=== PATIENT | female | born 1990 | race Two or more races ===

== ENCOUNTER 2018-02-16 02:46 | Inpatient (IN) | payer OTHER ==
[~2018-02-16] VITALS: Ht 157.5 cm; Wt 53.5 kg
== END 2018-02-18 11:02 | DRG 775 ==
LOC: EDBD 02:46 → OBS/DEL 02:46 → LDR 10:06 → OBS/DEL 10:06 → OB/GYN 17:13
PROC: 10E0XZZ Delivery of Products of Conception, External Approach (ICD-10-PCS; principal; 2018-02-16)
PROC: 0W8NXZZ Division of Female Perineum, External Approach (ICD-10-PCS; 2018-02-16)
PROC: 10907ZC Drainage of Amniotic Fluid, Therapeutic from Products of Conception, Via Natural or Artificial Opening (ICD-10-PCS; 2018-02-16)
PROC: 3E033VJ Introduction of Other Hormone into Peripheral Vein, Percutaneous Approach (ICD-10-PCS; 2018-02-16)
PROC: 4A033R1 Measurement of Arterial Saturation, Peripheral, Percutaneous Approach (ICD-10-PCS; 2018-02-16)
PROC: 4A1HXCZ Monitoring of Products of Conception, Cardiac Rate, External Approach (ICD-10-PCS; 2018-02-16)
DX: O99.824 Streptococcus B carrier state complicating childbirth (principal); Z3A.38 38 weeks gestation of pregnancy; Z37.0 Single live birth

== ENCOUNTER 2023-08-08 10:03 | Emergency (ER) | payer OTHER ==
[~2023-08-08] VITALS: Ht 157.5 cm; Wt 44.0 kg
[2023-08-08 12:43] LABS: HEMATOCRIT 42.6 % (36.0-45.00); HEMOGLOBIN 14.4 g/dL (12.0-15.00); MEAN CELL VOLUME 92.1 fL (80.00-100.00); MEAN CORPUSCULAR HEMOGLOBIN 31.2 pg (27.00-32.0); MEAN CORPUSCULAR HGB CONC 33.9 g/dl (32.0-36.0); PLATELET COUNT 282 K/uL (150-450); RED BLOOD COUNT 4.63 M/uL (4.00-6.00)
[2023-08-08 13:09] LABS: CALCIUM 9.6 mg/dL (8.5-10.1); CREATININE SERUM 0.64 mg/dL (0.55-1.02); GFR 107.54; POTASSIUM 3.88 mEq/L (3.5-5.1)
== END 2023-08-08 15:42 | disposition home or self-care (01) ==
LOC: ER 10:03
PROVIDERS: General Practice
DX: N93.8 Other specified abnormal uterine and vaginal bleeding (principal); Z91.040 Latex allergy status

== ENCOUNTER 2024-11-08 11:00 | Day surgery (SDC) | payer OTHER ==
[2024-11-04 09:27] LABS: HEMATOCRIT 37.9 % (36.0-45.00); HEMOGLOBIN 13.1 g/dL (12.0-15.00); MEAN CELL VOLUME 91.8 fL (80.00-100.00); MEAN CORPUSCULAR HEMOGLOBIN 31.8 pg (27.00-32.0); MEAN CORPUSCULAR HGB CONC 34.6 g/dl (32.0-36.0); PLATELET COUNT 273 K/uL (150-450); RED BLOOD COUNT 4.13 M/uL (4.00-6.00); RED CELL DISTRIBUTION WIDTH 12.8 % (11.5-14.5)
[2024-11-04 09:34] LABS: PH,URINE 7.5 (5.0-8.0); URINE APPEARANCE Clear; URINE BILIRRUBIN Negative (NEGATIVE); URINE BLOOD Negative; URINE COLOR Yellow; URINE GLUCOSE Negative (NEGATIVE); URINE KETONE Negative (NEGATIVE); URINE LEUKOCYTE Negative; URINE NITRATE Negative; URINE PROTEIN Negative (NEGATIVE); URINE UROBILINOGEN 0.2 E.U./dl
[2024-11-04 09:38] LABS: URINE EPITHELIAL CELLS 37.9 uL (0.0-38.8); URINE RBC 17.5 uL (0.0-20.8); URINE WBC 2.3 uL (0.0-23.2)
[2024-11-04 09:53] LABS: INR 1.07; PARTIAL THROMBOPLASTIN TIME 29.4 SECONDS (22.0-34.0); PROTHROMBIN TIME 11.6 SECONDS (9.0-11.5)
[2024-11-04 10:28] LABS: ALBUMIN 4.3 gm/dL (3.4-5.0); BILIRUBIN TOTAL 0.77 mg/dL (0.3-1.2); CALCIUM 9.4 mg/dL (8.5-10.1); CREATININE SERUM 0.59 mg/dL (0.55-1.02); GFR 117.38; GLOBULINA 3.2 G/DL (2.4-3.5); POTASSIUM 4.47 mEq/L (3.5-5.1); TOTAL PROTEIN 7.5 gm/dL (6.4-8.2)
[2024-11-08] MEDS ORDERED: CEFAZOLIN SODIUM 1,000 MG VIAL ONE (15:44)
[2024-11-08] MEDS ORDERED: POVIDONE-IODINE 118 ML BOTT TOP ONE (15:44)
== END 2024-11-08 19:10 | disposition home or self-care (01) ==
LOC: CIR.AMB 11:00
PROVIDERS: ATTEND Specialist
DX: T83.32XA Displacement of intrauterine contraceptive device, initial encounter (principal); Z91.040 Latex allergy status